=== PATIENT | female | born 1970 | race Caucasian/White ===

== ENCOUNTER 2020-12-14 06:39 | Day surgery (SDC) | payer BC ==
[2020-12-12 12:39] VITALS: BMI 25.9
[2020-12-14] MEDS ORDERED: ROPIVACAINE HCL 0.5% 30ML VIAL ONE (06:59)
[2020-12-14] MEDS ORDERED: MIDAZOLAM HCL 2 MG/2 ML SINGLE DOSE VIAL ONE ×2 (06:59→09:22)
[2020-12-14] MEDS ORDERED: PROPOFOL 20 ML ONE ×3 (09:22)
[2020-12-14] MEDS ORDERED: LABETALOL HCL 5 MG/1 ML (100MG/20 ML VIAL) ONE (09:51)
[2020-12-14] MEDS ORDERED: PROMETHAZINE HCL 25 MG/1 ML VIAL IVPUSH PRN (10:45)
[2020-12-14] MEDS ORDERED: oxyCODONE HCL 5 MG TABLET PO PRN ×2 (10:45)
[2020-12-14] MEDS ORDERED: ONDANSETRON 4 MG/2 ML VIAL IVPUSH PRN (10:45)
[2020-12-14 11:27] VITALS: TEMP 96.9
[2020-12-14 11:56] VITALS: BP 120/72; PULSE 68
== END 2020-12-14 11:56 | disposition home or self-care (01) ==
LOC: FASU 06:39
PROVIDERS: ATTEND Orthopaedic Surgery
PROC: 0RNK4ZZ Release Left Shoulder Joint, Percutaneous Endoscopic Approach (ICD-10-PCS; principal; 2020-12-14 09:44)
DX: M75.42 Impingement syndrome of left shoulder (principal)
CPT/HCPCS: 81025; 94760